=== PATIENT | female | born 1930 | race Caucasian/White ===

== ENCOUNTER → 2016-11-13 | Outpatient (CLI) | payer MEDICARE, OTHER ==
--- NOTE | 2016-11-13 14:23 | RADRPT ---
PROCEDURE: XR Pelvis and Hips. CLINICAL INDICATION: Pelvic pain. Bilateral hip pain. TECHNIQUE: Five views. Frontal pelvis. Frontal and lateral right hip. Frontal and lateral left hip. COMPARISON: 02/21/2015. FINDINGS: There are bilateral total hip arthroplasties. These appear satisfactory with no fracture, dislocati on, or loosening. There is no lytic or blastic lesion. Surgical clips are present in the pelvis. The upper pelvis is not included on the images. IMPRESSION: 1. Satisfactory postoperative appearance of both hips. RPTAT: QQ .Lew Darling MD, MD Date Time Electronically viewed and signed by .Lew Darling MD, on 11/13/2016 14:23 .R/
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
== END | disposition home or self-care (01) ==
LOC: HKI 13:43
DX: M25.551 Pain in right hip (principal); M25.552 Pain in left hip; M54.5 Low back pain; V43.52XA Car driver injured in collision with other type car in traffic accident, initial encounter; Y92.410 Unspecified street and highway as the place of occurrence of the external cause; Z96.643 Presence of artificial hip joint, bilateral
CPT/HCPCS: 73523